=== PATIENT | female | born 1980 | race Two or more races ===

== ENCOUNTER 2017-11-03 16:22 | Inpatient (IN) | payer SELFPAY ==
[~2017-11-03] VITALS: Ht 162.6 cm; Wt 88.0 kg
[2017-11-03 18:12] LABS: Basophils # (auto) 0.1 uL; Basophils % (auto) 0.6 % (0.0-2.0); Eosinophils # (auto) 0.1 uL; Eosinophils % (auto) 1.7 % (0.0-7.0); Hematocrit 28.7 % (36.0-46.0); Hemoglobin 9.7 g/dL (12.2-16.2); Lymphocytes # (auto) 1.5 uL; Lymphocytes % (auto) 17.1 % (10.0-50.0); Mean Corpuscular Hemoglobin 28.3 pg (28.0-32.0); Mean Corpuscular Hgb Conc. 33.7 g/dL (32.0-36.0); Monocytes # (auto) 0.5 uL; Monocytes % (auto) 5.3 % (0.0-12.0); Neutrophils # (auto) 6.4 uL; Neutrophils % (auto) 75.3 % (37.0-80.0); Platelet Count (auto) 187 10^3/uL (140-450); Red Blood Cells 3.41 10^6/uL (4.0-5.20); Red Cell Distribution Width 14.7 % (11.8-14.3); White Blood Cell 8.5 10^3/uL (4.4-10.8)
[2017-11-03 18:36] LABS: Albumin 3.2 g/dL (3.4-5.0); BUN/Creatinine Ratio 8.4; Bilirubin, Total 0.2 mg/dL (0.2-1.0); Calcium 6.5 mg/dL (8.5-10.1); Potassium 3.7 mmol/L (3.5-5.1); Total Protein 6.8 g/dL (6.4-8.2)
[2017-11-03] MEDS ORDERED: EPOETIN ALFA 10,000 UNIT/1 ML VIAL IV ONE (22:15)
[2017-11-03] MEDS ORDERED: SODIUM CHL 0.9% 1000 ML BAG XX ONE (22:15)
[2017-11-03] MEDS ORDERED: MORPHINE SULF INJ 2 MG/ML SYRINGE 1ML IV PRN (22:45)
[2017-11-03] MEDS ORDERED: HYDROcodone-ACET 5/325MG TAB PO PRN (22:45)
[2017-11-03] MEDS ORDERED: LORazepam 2MG/ML-1ML VIAL IV PRN (22:45)
[2017-11-03] MEDS ORDERED: ACETAMINOPHEN 500 MG TAB PO PRN (22:45)
[2017-11-03] MEDS ORDERED: NITROGLYCERIN 0.4 MG SL TAB SL PRN (22:45)
[2017-11-04 02:35] VITALS: BP 126/80
[2017-11-04] MEDS ORDERED: CALCIUM ACETATE 667 MG CAP PO SCH (08:00)
[2017-11-04] MEDS ORDERED: LEVETIRACETAM 500 MG TAB PO SCH (10:00)
[2017-11-04] MEDS ORDERED: amLODIPine BESYLATE 5 MG TAB PO SCH (10:00)
[2017-11-04] MEDS ORDERED: LOSARTAN POTASSIUM 25 MG TAB PO SCH (10:00)
[2017-11-04] MEDS ORDERED: cloNIDine HCL 0.1 MG TAB PO SCH (10:00)
== END 2017-11-04 02:34 | disposition left against medical advice (07) | DRG 682 ==
LOC: ER 16:24 → TELE 16:25 → TELE-WESTW 23:42
PROVIDERS: ADMIT Nurse Practitioner Family; ATTEND Nurse Practitioner Family
PROC: 5A1D70Z Performance of Urinary Filtration, Intermittent, Less than 6 Hours Per Day (ICD-10-PCS; principal; 2017-11-03)
DX: I12.0 Hypertensive chronic kidney disease with stage 5 chronic kidney disease or end stage renal disease (principal); N18.6 End stage renal disease; E44.1 Mild protein-calorie malnutrition; R56.9 Unspecified convulsions; E66.9 Obesity, unspecified; D64.9 Anemia, unspecified; Z53.21 Procedure and treatment not carried out due to patient leaving prior to being seen by health care provider; Z99.2 Dependence on renal dialysis; Z68.31 Body mass index [BMI] 31.0-31.9, adult
CPT/HCPCS: 36415; 71045; 80053; 85025; 90935; 93005; 94761; 96365; 96375; J0885; J1642

== ENCOUNTER 2017-12-23 14:54 | Emergency (ER) | payer SELFPAY ==
[~2017-12-23] VITALS: Ht 162.6 cm; Wt 90.7 kg
[2017-12-23 15:20] VITALS: BP 136/58
== END 2017-12-23 16:46 | disposition left against medical advice (07) ==
LOC: MERGE 15:20 → ER 15:20
DX: T82.838A Hemorrhage due to vascular prosthetic devices, implants and grafts, initial encounter (principal); N18.9 Chronic kidney disease, unspecified; Y92.89 Other specified places as the place of occurrence of the external cause; Z53.29 Procedure and treatment not carried out because of patient's decision for other reasons

== ENCOUNTER → 2019-10-01 | Emergency (ER) | payer MEDICAID, MEDICARE ==
[~2019-10-01] VITALS: Ht 165.1 cm; Wt 86.2 kg
[~2019-10-01] MED LIST: ALBUTEROL SULF 2.5 MG/0.5ML(0.5%) NEB SOLN HHN ONE; ALUM & MAG HYDROX-SIMETH LIQ(MAALOX) 30 ML PO PRN; AMLO5TAB15 PO; BUMETANIDE 2.5mg/10ml (0.25 mg/ml) INJ IV ONE; CALCIUM GLUC 4.65meq/50ml D5AE 50 ML IV ONE; CARVEDILOL 12.5 MG TAB PO ONE; CLO01T PO; DOCUSATE SOD 100 MG CAP PO PRN; FURO80TA3 PO; FUROSEMIDE 100 MG/10ML VIAL IV SCH; FUROSEMIDE 40 MG/4 ML VIAL IV ONE; GABA300C10 PO; HYDR50TA15 PO; HYDROcodone-ACET 5/325MG TAB PO PRN; KEP500T PO; LACT10SO70 PO; LORazepam 0.5 MG TAB PO PRN; MORPHINE SULF INJ 2 MG/ML SYRINGE 1ML IV PRN; NITROGLYCERIN 0.4 MG SL TAB SL PRN; ONDANSETRON HCL 4 MG/2 ML VIAL IV PRN; SODIUM BICARBONATE 8.4 % INJ 50ML VIAL IV ONE; SODIUM CHL 0.9% 1000 ML BAG XX ONE; SODIUM ZIRCONIUM CYCL 10 GM PAK PO ONE; SODIUM ZIRCONIUM CYCL 10 GM PAK PO SCH; cloNIDine HCL 0.1 MG TAB PO ONE; hydrALAZINE HCL 20 MG/ML VL IV ONE
[2019-10-01 12:34] LABS: Basophils # (auto) 0.1 10 ^3/uL (0-0.2); Basophils % (auto) 0.9 % (0.0-2.0); Eosinophils # (auto) 0.1 10 ^3/uL (0-0.8); Hematocrit 31.9 % (36.0-46.0); Hemoglobin 10.8 g/dL (12.2-16.2); Lymphocytes # (auto) 0.8 10 ^3/uL (0.4-5.4); Lymphocytes % (auto) 6.4 % (10.0-50.0); Mean Corpuscular Hemoglobin 30.8 pg (28.0-32.0); Mean Corpuscular Hgb Conc. 33.9 g/dL (32.0-36.0); Mean Corpuscular Volume 90.9 fL (80.0-100.0); Monocytes # (auto) 0.6 10 ^3/uL (0-1.3); Monocytes % (auto) 4.5 % (0.0-12.0); Neutrophils # (auto) 11.6 10 ^3/uL (1.6-8.6); Neutrophils % (auto) 87.2 % (37.0-80.0); Nucleated Red Blood Cells % 0.1 %; Platelet Count (auto) 235 10^3/uL (140-450); Red Blood Cells 3.51 10^6/uL (4.0-5.20); Red Cell Distribution Width 13.9 % (11.8-14.3); White Blood Cell 13.3 10^3/uL (4.4-10.8)
[2019-10-01 12:54] LABS: Albumin 3.6 g/dL (3.4-5.0); Calcium 7.7 mg/dL (8.5-10.1)
[2019-10-01 12:59] LABS: Bilirubin, Total 0.4 mg/dL (0.2-1.0); Total Protein 7.5 g/dL (6.4-8.2)
[2019-10-01 13:01] LABS: BUN/Creatinine Ratio 7.3; Potassium 6.6 mmol/L (3.5-5.1)
[2019-10-01 17:55] VITALS: BP 227/129
== END | disposition left against medical advice (07) ==
LOC: ER 11:41
DX: I12.0 Hypertensive chronic kidney disease with stage 5 chronic kidney disease or end stage renal disease (principal); N18.6 End stage renal disease; E87.5 Hyperkalemia; E87.8 Other disorders of electrolyte and fluid balance, not elsewhere classified; E87.1 Hypo-osmolality and hyponatremia; J18.9 Pneumonia, unspecified organism; Z99.2 Dependence on renal dialysis
CPT/HCPCS: 36415; 71045; 80053; 83735; 83880; 84484; 85025; 87040; 93005; 94640; 96365; 96375; 99285; J0360; J0610; J1642; J1940; J7030; 90935

== ENCOUNTER 2021-05-06 12:25 | Inpatient (IN) | payer MEDICARE ==
[~2021-05-06] VITALS: Ht 162.6 cm; Wt 71.6 kg
[~2021-05-06 12:25] MED LIST changes: -ALBUTEROL SULF 2.5 MG/0.5ML(0.5%) NEB SOLN HHN ONE; -ALUM & MAG HYDROX-SIMETH LIQ(MAALOX) 30 ML PO PRN; +AMLO-489 PO; -AMLO5TAB15 PO; -BUMETANIDE 2.5mg/10ml (0.25 mg/ml) INJ IV ONE; -CALCIUM GLUC 4.65meq/50ml D5AE 50 ML IV ONE; -CARVEDILOL 12.5 MG TAB PO ONE; -DOCUSATE SOD 100 MG CAP PO PRN; -FUROSEMIDE 100 MG/10ML VIAL IV SCH; -FUROSEMIDE 40 MG/4 ML VIAL IV ONE; -HYDROcodone-ACET 5/325MG TAB PO PRN; -LORazepam 0.5 MG TAB PO PRN; -MORPHINE SULF INJ 2 MG/ML SYRINGE 1ML IV PRN; -NITROGLYCERIN 0.4 MG SL TAB SL PRN; -ONDANSETRON HCL 4 MG/2 ML VIAL IV PRN; -SODIUM BICARBONATE 8.4 % INJ 50ML VIAL IV ONE; -SODIUM CHL 0.9% 1000 ML BAG XX ONE; -SODIUM ZIRCONIUM CYCL 10 GM PAK PO ONE; -SODIUM ZIRCONIUM CYCL 10 GM PAK PO SCH; -cloNIDine HCL 0.1 MG TAB PO ONE; -hydrALAZINE HCL 20 MG/ML VL IV ONE
[2021-05-06] MEDS ORDERED: ASPirin 81 mg TAB PO ONE (12:45)
[2021-05-06 13:53] LABS: Basophils # (auto) 0.1 10 ^3/uL (0-0.2); Hemoglobin 8.2 g/dL (12.2-16.2); Lymphocytes # (auto) 0.8 10 ^3/uL (0.4-5.4); Mean Corpuscular Hgb Conc. 33.4 g/dL (32.0-36.0); Monocytes # (auto) 0.7 10 ^3/uL (0-1.3); Neutrophils # (auto) 2.6 10 ^3/uL (1.6-8.6); Neutrophils % (auto) 57.7 % (37.0-80.0); Red Blood Cells 2.76 10^6/uL (4.0-5.20); White Blood Cell 4.5 10^3/uL (4.4-10.8)
[2021-05-06 13:55] LABS: Basophils % (auto) 1.2 % (0.0-2.0); Eosinophils # (auto) 0.4 10 ^3/uL (0-0.8); Eosinophils % (auto) 8.1 % (0.0-7.0); Hematocrit 24.5 % (36.0-46.0); Lymphocytes % (auto) 18.2 % (10.0-50.0); Mean Corpuscular Hemoglobin 29.6 pg (28.0-32.0); Mean Corpuscular Volume 88.5 fL (80.0-100.0); Monocytes % (auto) 14.8 % (0.0-12.0); Nucleated Red Blood Cells % 0.2 %; Red Cell Distribution Width 16.3 % (11.8-14.3)
[2021-05-06 16:33] LABS: Sodium 133 mmol/L (136-145)
[2021-05-06 16:34] LABS: Alanine Aminotransferase 14 U/L (13-56); Alkaline Phosphatase 155 U/L (45-117); Anion Gap 10 (5-15); Aspartate Aminotransferase 22 U/L (15-37); BUN/Creatinine Ratio 9.3; Bilirubin, Total 0.4 mg/dL (0.2-1.0); Calcium 7.9 mg/dL (8.5-10.1); Carbon Dioxide 25 mmol/L (21-32); Chloride 98 mmol/L (98-107); GFR African American 6 mL/min; GFR Non-African American 5 mL/min; Glucose 83 mg/dL (74-106)
[2021-05-06 16:35] LABS: Albumin 3.1 g/dL (3.4-5.0); Total Protein 7.7 g/dL (6.4-8.2)
[2021-05-06 16:40] LABS: Blood Urea Nitrogen 83 mg/dL (7-18); Potassium 6.3 mmol/L (3.5-5.1)
[2021-05-06] MEDS ORDERED: CALCIUM GLUC 1,000mg/50ml-NS 50 ML IV ONE (17:15)
[2021-05-06] MEDS ORDERED: ALBUTEROL SULF 2.5 MG/0.5ML(0.5%) NEB SOLN NEB ONE (17:15)
[2021-05-06] MEDS ORDERED: SODIUM BICARBONATE 8.4% INJ 50ML SYRINGE IV ONE (17:15)
[2021-05-06] MEDS ORDERED: FUROSEMIDE 20 MG/2 ML VIAL IV ONE (17:15)
[2021-05-06] MEDS ORDERED: InsuLIN REG 1unit/0.01ml Soln (100units/ml) IV ONE (17:15)
[2021-05-06] MEDS ORDERED: SODIUM ZIRCONIUM CYCL 10 GM PAK PO ONE (17:15)
[2021-05-06] MEDS ORDERED: DEXTROSE (50%) 50ML SYRG IV ONE (17:15)
[2021-05-07] VITALS (8 sets, daily range): BP systolic 109–146; BP diastolic 58–90
[2021-05-07] MEDS ORDERED: MORPHINE SULFATE INJECTION 2 MG/ML SYRG IV PRN
[2021-05-07] MEDS ORDERED: NITROGLYCERIN 0.4 MG SL TAB SL PRN
[2021-05-07] MEDS: HYDROcodone-ACET 5/325MG TAB PO PRN ×3 (00:22→23:56)
[2021-05-07] MEDS: IPRATROPIUM BROM 0.5 MG/2.5ML INH SOL NEB PRN ×2 (00:53→08:45)
[2021-05-07] MEDS: ALBUTEROL SULF 2.5 MG/0.5ML(0.5%) NEB SOLN NEB PRN ×2 (00:54→08:45)
[2021-05-07] MEDS: SODIUM CHLOR 0.9% PF (SALINE LOCK) 10ML VIAL/SYR IV SCH ×3 (05:15→22:03)
[2021-05-07 06:30] LABS: Basophils # (auto) 0.1 10 ^3/uL (0-0.2); Basophils % (auto) 0.8 % (0.0-2.0); Eosinophils # (auto) 0.3 10 ^3/uL (0-0.8); Lymphocytes # (auto) 0.9 10 ^3/uL (0.4-5.4); Monocytes # (auto) 0.7 10 ^3/uL (0-1.3); Neutrophils # (auto) 4.7 10 ^3/uL (1.6-8.6); Red Cell Distribution Width 15.6 % (11.8-14.3); White Blood Cell 6.6 10^3/uL (4.4-10.8)
[2021-05-07 06:33] LABS: Eosinophils % (auto) 4.6 % (0.0-7.0); Lymphocytes % (auto) 13.4 % (10.0-50.0); Mean Corpuscular Hemoglobin 29.7 pg (28.0-32.0); Mean Corpuscular Hgb Conc. 33.3 g/dL (32.0-36.0); Mean Corpuscular Volume 89.1 fL (80.0-100.0); Neutrophils % (auto) 71.2 % (37.0-80.0); Red Blood Cells 2.69 10^6/uL (4.0-5.20)
[2021-05-07 06:51] LABS: Albumin 3.1 g/dL (3.4-5.0); BUN/Creatinine Ratio 9.1; Calcium 8.2 mg/dL (8.5-10.1)
[2021-05-07 06:54] LABS: Bilirubin, Total 0.4 mg/dL (0.2-1.0)
[2021-05-07 06:55] LABS: Cholesterol 110 mg/dL (< 200); HDL Cholesterol 56 mg/dL (40-59); LDL Cholesterol 44 mg/dL (< 100); Triglycerides 31 mg/dL (< 150)
[2021-05-07] MEDS: SEVELAMER 800 MG TAB PO SCH ×3 (08:00→18:11)
[2021-05-07 08:54] LABS: Potassium 5.8 mmol/L (3.5-5.1)
[2021-05-07] MEDS ORDERED: SODIUM ZIRCONIUM CYCL 10 GM PAK PO ONE ×2 (10:30→17:45)
[2021-05-07] MEDS ORDERED: LACTULOSE 20Gm/30ML SOLN PO ONE (10:30)
[2021-05-07] MEDS: FAMOTIDINE (10MG/ML) 2ML VL IV SCH ×2 (10:53→22:03)
[2021-05-07] MEDS: FUROSEMIDE 40 MG/4 ML VIAL IV SCH (10:53)
[2021-05-07] MEDS: ASPirin 81 mg TAB PO SCH (10:54)
[2021-05-07] MEDS: ZINC SULFATE 220mg CAP or TAB PO SCH (10:54)
[2021-05-07] MEDS: B-COMPLEX W/ C & FOLIC ACID(NEPHROVITE TAB) PO SCH (10:54)
[2021-05-07] MEDS: ASCORBIC ACID 500 MG TAB PO SCH ×2 (10:55→22:03)
[2021-05-07] MEDS: DOCUSATE SOD 100 MG CAP PO PRN (10:55)
[2021-05-07] MEDS: ONDANSETRON HCL 4 MG/2 ML VIAL IV PRN (19:04)
[2021-05-07] MEDS: ATORVASTATIN 20 MG TAB PO SCH (22:03)
[2021-05-08] MEDS: ONDANSETRON HCL 4 MG/2 ML VIAL IV PRN ×2 (02:23→21:29)
[2021-05-08] MEDS: DOCUSATE SOD 100 MG CAP PO PRN (02:36)
[2021-05-08 05:00] VITALS: BP 137/76
[2021-05-08] MEDS: SODIUM CHLOR 0.9% PF (SALINE LOCK) 10ML VIAL/SYR IV SCH ×3 (05:09→21:11)
[2021-05-08 05:50] LABS: Basophils # (auto) 0 10 ^3/uL (0-0.2); Eosinophils # (auto) 0.5 10 ^3/uL (0-0.8); Hemoglobin 8.1 g/dL (12.2-16.2); Lymphocytes # (auto) 0.9 10 ^3/uL (0.4-5.4); Monocytes # (auto) 0.5 10 ^3/uL (0-1.3); Red Cell Distribution Width 15.6 % (11.8-14.3); White Blood Cell 4.8 10^3/uL (4.4-10.8)
[2021-05-08 05:53] LABS: Basophils % (auto) 0.9 % (0.0-2.0); Eosinophils % (auto) 10.3 % (0.0-7.0); Hematocrit 24.3 % (36.0-46.0); Mean Corpuscular Hemoglobin 29.6 pg (28.0-32.0); Mean Corpuscular Hgb Conc. 33.2 g/dL (32.0-36.0); Mean Corpuscular Volume 89.1 fL (80.0-100.0); Monocytes % (auto) 10.3 % (0.0-12.0); Neutrophils # (auto) 2.8 10 ^3/uL (1.6-8.6); Neutrophils % (auto) 59.5 % (37.0-80.0); Red Blood Cells 2.73 10^6/uL (4.0-5.20)
[2021-05-08 06:17] LABS: BUN/Creatinine Ratio 10.1; Calcium 7.5 mg/dL (8.5-10.1)
[2021-05-08 06:20] LABS: Potassium 6.2 mmol/L (3.5-5.1)
[2021-05-08] MEDS: SEVELAMER 800 MG TAB PO SCH ×3 (08:00→17:04)
[2021-05-08 09:21] VITALS: BP 132/83
[2021-05-08] MEDS ORDERED: SODIUM CHL 0.9% 1000 ML BAG XX ONE (09:30)
[2021-05-08] MEDS: B-COMPLEX W/ C & FOLIC ACID(NEPHROVITE TAB) PO SCH (10:22)
[2021-05-08] MEDS: ZINC SULFATE 220mg CAP or TAB PO SCH (10:22)
[2021-05-08] MEDS: FAMOTIDINE (10MG/ML) 2ML VL IV SCH ×2 (10:22→21:11)
[2021-05-08] MEDS: ASPirin 81 mg TAB PO SCH (10:22)
[2021-05-08] MEDS: ASCORBIC ACID 500 MG TAB PO SCH ×2 (10:22→21:19)
[2021-05-08] MEDS: FUROSEMIDE 40 MG/4 ML VIAL IV SCH (10:23)
[2021-05-08] MEDS: HYDROcodone-ACET 5/325MG TAB PO PRN ×2 (10:24→21:29)
[2021-05-08 13:00] VITALS: BP 133/67
[2021-05-08 17:02] VITALS: BP 139/79
[2021-05-08] MEDS ORDERED: EPOETIN ALFA-EPBX 10,000 UNIT/1ML VIAL SC ONE (21:00)
[2021-05-08] MEDS: ATORVASTATIN 20 MG TAB PO SCH (21:19)
[2021-05-08 22:00] VITALS: BP 154/92
[2021-05-08] MEDS: hydrALAZINE HCL 20 MG/ML VL IV PRN (22:00)
[2021-05-09 05:00] VITALS: BP 144/82
[2021-05-09] MEDS: SODIUM CHLOR 0.9% PF (SALINE LOCK) 10ML VIAL/SYR IV SCH ×3 (05:20→21:46)
[2021-05-09] MEDS: HYDROcodone-ACET 5/325MG TAB PO PRN ×3 (05:27→18:02)
[2021-05-09 07:02] LABS: BUN/Creatinine Ratio 9.8
[2021-05-09] MEDS: SEVELAMER 800 MG TAB PO SCH ×3 (08:00→17:44)
[2021-05-09 08:02] LABS: Potassium 5.8 mmol/L (3.5-5.1)
[2021-05-09] MEDS: FAMOTIDINE (10MG/ML) 2ML VL IV SCH ×2 (08:59→21:45)
[2021-05-09] MEDS: B-COMPLEX W/ C & FOLIC ACID(NEPHROVITE TAB) PO SCH (08:59)
[2021-05-09] MEDS: ASPirin 81 mg TAB PO SCH (08:59)
[2021-05-09] MEDS: ASCORBIC ACID 500 MG TAB PO SCH ×2 (08:59→21:46)
[2021-05-09] MEDS: ZINC SULFATE 220mg CAP or TAB PO SCH (08:59)
[2021-05-09] MEDS: DOCUSATE SOD 100 MG CAP PO PRN (09:10)
[2021-05-09] MEDS: FUROSEMIDE 40 MG/4 ML VIAL IV SCH (09:17)
[2021-05-09] MEDS: hydrALAZINE HCL 20 MG/ML VL IV PRN (09:43)
[2021-05-09] MEDS ORDERED: SODIUM ZIRCONIUM CYCL 10 GM PAK PO ONE (11:30)
[2021-05-09] MEDS: ALBUTEROL SULF 2.5 MG/0.5ML(0.5%) NEB SOLN NEB PRN (12:17)
[2021-05-09] MEDS: IPRATROPIUM BROM 0.5 MG/2.5ML INH SOL NEB PRN (12:17)
[2021-05-09 13:20] VITALS: BP 145/88
[2021-05-09] MEDS: ONDANSETRON HCL 4 MG/2 ML VIAL IV PRN ×2 (18:01→22:47)
[2021-05-09] MEDS: ATORVASTATIN 20 MG TAB PO SCH (21:46)
[2021-05-09 22:00] VITALS: BP 127/64
[2021-05-10] MEDS: diphenhdrAMINE HCL 50 MG/1 ML VL IV PRN (00:52)
[2021-05-10] MEDS: HYDROcodone-ACET 5/325MG TAB PO PRN ×3 (03:20→20:04)
[2021-05-10 04:18] LABS: Basophils # (auto) 0 10 ^3/uL (0-0.2); Basophils % (auto) 1.1 % (0.0-2.0); Eosinophils # (auto) 0.5 10 ^3/uL (0-0.8); Monocytes # (auto) 0.5 10 ^3/uL (0-1.3); Neutrophils # (auto) 2.3 10 ^3/uL (1.6-8.6); White Blood Cell 4.2 10^3/uL (4.4-10.8)
[2021-05-10 04:20] LABS: Eosinophils % (auto) 12.1 % (0.0-7.0); Hemoglobin 8.1 g/dL (12.2-16.2); Lymphocytes # (auto) 0.8 10 ^3/uL (0.4-5.4); Lymphocytes % (auto) 20.4 % (10.0-50.0); Mean Corpuscular Hemoglobin 29.7 pg (28.0-32.0); Mean Corpuscular Hgb Conc. 33.8 g/dL (32.0-36.0); Mean Corpuscular Volume 87.8 fL (80.0-100.0); Monocytes % (auto) 11.4 % (0.0-12.0); Nucleated Red Blood Cells % 0.2 %; Red Blood Cells 2.74 10^6/uL (4.0-5.20); Red Cell Distribution Width 15.3 % (11.8-14.3)
[2021-05-10 04:39] LABS: BUN/Creatinine Ratio 10.1; Calcium 8.1 mg/dL (8.5-10.1)
[2021-05-10 05:00] VITALS: BP 138/84
[2021-05-10] MEDS: SODIUM CHLOR 0.9% PF (SALINE LOCK) 10ML VIAL/SYR IV SCH ×3 (05:16→21:08)
[2021-05-10 05:26] LABS: Potassium 6.2 mmol/L (3.5-5.1)
[2021-05-10] MEDS ORDERED: SODIUM ZIRCONIUM CYCL 10 GM PAK PO ONE (05:45)
[2021-05-10] MEDS: SEVELAMER 800 MG TAB PO SCH ×3 (08:14→18:02)
[2021-05-10] MEDS: ASCORBIC ACID 500 MG TAB PO SCH ×2 (10:00→21:08)
[2021-05-10] MEDS: ASPirin 81 mg TAB PO SCH (10:00)
[2021-05-10] MEDS: FAMOTIDINE (10MG/ML) 2ML VL IV SCH ×2 (10:00→21:08)
[2021-05-10] MEDS: ZINC SULFATE 220mg CAP or TAB PO SCH (10:00)
[2021-05-10] MEDS: FUROSEMIDE 40 MG/4 ML VIAL IV SCH (10:00)
[2021-05-10] MEDS: B-COMPLEX W/ C & FOLIC ACID(NEPHROVITE TAB) PO SCH (10:00)
[2021-05-10 10:01] VITALS: BP 146/84
[2021-05-10 13:00] VITALS: BP 140/77
[2021-05-10] MEDS: DOCUSATE SOD 100 MG CAP PO PRN (13:09)
[2021-05-10 13:20] LABS: Hepatitis A Ab IgM Negative
[2021-05-10 14:34] LABS: Hepatitis B Core IgM Negative
[2021-05-10 14:37] LABS: Hepatitis C Antibody Negative (Negative)
[2021-05-10] MEDS ORDERED: LACTULOSE 20Gm/30ML SOLN PO ONE (15:45)
[2021-05-10] MEDS: ACETAMINOPHEN 325 MG TAB PO PRN (16:20)
[2021-05-10] MEDS ORDERED: InsuLIN REG 1unit/0.01ml Soln (100units/ml) IV ONE (16:45)
[2021-05-10] MEDS ORDERED: DEXTROSE (50%) 50ML SYRG IV ONE (16:45)
[2021-05-10 17:00] VITALS: BP 141/67
[2021-05-10] MEDS: SALINE 0.65 % NASAL SPRAY 45ML BOTTLE EACHNOSTRI SCH ×2 (18:00→22:43)
[2021-05-10 20:00] VITALS: BP 143/82
[2021-05-10] MEDS: ATORVASTATIN 20 MG TAB PO SCH (21:08)
[2021-05-10] MEDS: ONDANSETRON HCL 4 MG/2 ML VIAL IV PRN (21:09)
[2021-05-11] MEDS: diphenhdrAMINE HCL 50 MG/1 ML VL IV PRN ×2 (00:37→21:07)
[2021-05-11] MEDS: HYDROcodone-ACET 5/325MG TAB PO PRN ×4 (02:08→21:07)
[2021-05-11 05:00] VITALS: BP 145/79
[2021-05-11] MEDS: SODIUM CHLOR 0.9% PF (SALINE LOCK) 10ML VIAL/SYR IV SCH ×3 (05:03→21:08)
[2021-05-11] MEDS: SALINE 0.65 % NASAL SPRAY 45ML BOTTLE EACHNOSTRI SCH ×4 (05:03→21:06)
[2021-05-11 06:38] LABS: BUN/Creatinine Ratio 8.2
[2021-05-11] MEDS ORDERED: SODIUM ZIRCONIUM CYCL 10 GM PAK PO ONE (06:45)
[2021-05-11] MEDS: SEVELAMER 800 MG TAB PO SCH ×3 (08:00→17:10)
[2021-05-11 08:18] VITALS: BP 152/87
[2021-05-11] MEDS: ASPirin 81 mg TAB PO SCH (09:22)
[2021-05-11] MEDS: B-COMPLEX W/ C & FOLIC ACID(NEPHROVITE TAB) PO SCH (09:22)
[2021-05-11] MEDS: FUROSEMIDE 40 MG/4 ML VIAL IV SCH (09:22)
[2021-05-11] MEDS: FAMOTIDINE (10MG/ML) 2ML VL IV SCH ×2 (09:22→21:07)
[2021-05-11] MEDS: ZINC SULFATE 220mg CAP or TAB PO SCH (09:22)
[2021-05-11] MEDS: ASCORBIC ACID 500 MG TAB PO SCH ×2 (09:22→21:07)
[2021-05-11 11:38] VITALS: BP 161/94
[2021-05-11] MEDS: hydrALAZINE HCL 20 MG/ML VL IV PRN (11:53)
[2021-05-11 13:37] VITALS: BP 154/90
[2021-05-11 16:15] VITALS: BP 155/78
[2021-05-11] MEDS: ONDANSETRON HCL 4 MG/2 ML VIAL IV PRN (16:21)
[2021-05-11] MEDS: ATORVASTATIN 20 MG TAB PO SCH (21:07)
[2021-05-11 21:34] VITALS: BP 140/77
[2021-05-12] MEDS: HYDROcodone-ACET 5/325MG TAB PO PRN ×3 (04:43→21:05)
[2021-05-12 05:00] VITALS: BP 164/97
[2021-05-12] MEDS: SODIUM CHLOR 0.9% PF (SALINE LOCK) 10ML VIAL/SYR IV SCH ×3 (05:58→21:06)
[2021-05-12] MEDS: SALINE 0.65 % NASAL SPRAY 45ML BOTTLE EACHNOSTRI SCH ×4 (05:58→21:06)
[2021-05-12 06:20] LABS: Calcium 8.5 mg/dL (8.5-10.1); Potassium 5.3 mmol/L (3.5-5.1)
[2021-05-12] MEDS: hydrALAZINE HCL 20 MG/ML VL IV PRN ×2 (06:20→13:14)
[2021-05-12 06:22] LABS: BUN/Creatinine Ratio 8.1
[2021-05-12] MEDS ORDERED: ALBUTEROL SULF 2.5 MG/0.5ML(0.5%) NEB SOLN NEB ONE (07:30)
[2021-05-12] MEDS ORDERED: InsuLIN REG 1unit/0.01ml Soln (100units/ml) IV ONE (07:30)
[2021-05-12] MEDS ORDERED: DEXTROSE (50%) 50ML SYRG IV ONE (07:30)
[2021-05-12] MEDS ORDERED: CALCIUM GLUC 1,000mg/50ml-NS 50 ML IV ONE (07:30)
[2021-05-12] MEDS: SODIUM ZIRCONIUM CYCL 10 GM PAK PO SCH ×3 (08:37→21:04)
[2021-05-12] MEDS: B-COMPLEX W/ C & FOLIC ACID(NEPHROVITE TAB) PO SCH (08:38)
[2021-05-12] MEDS: FAMOTIDINE (10MG/ML) 2ML VL IV SCH ×2 (08:38→21:06)
[2021-05-12] MEDS: ZINC SULFATE 220mg CAP or TAB PO SCH (08:38)
[2021-05-12] MEDS: ASCORBIC ACID 500 MG TAB PO SCH ×2 (08:38→21:05)
[2021-05-12] MEDS: FUROSEMIDE 100 MG/10ML VIAL IV SCH (08:38)
[2021-05-12] MEDS: ASPirin 81 mg TAB PO SCH (08:38)
[2021-05-12] MEDS: SEVELAMER 800 MG TAB PO SCH ×3 (08:38→17:07)
[2021-05-12] MEDS: ACETAMINOPHEN 325 MG TAB PO PRN (08:44)
[2021-05-12 09:00] VITALS: BP 154/96
[2021-05-12 13:00] VITALS: BP 156/82
[2021-05-12 16:33] VITALS: BP 144/75
[2021-05-12] MEDS: diphenhdrAMINE HCL 50 MG/1 ML VL IV PRN (21:05)
[2021-05-12] MEDS: ATORVASTATIN 20 MG TAB PO SCH (21:06)
[2021-05-12 22:09] VITALS: BP 160/92
[2021-05-13 05:14] VITALS: BP 165/95
[2021-05-13] MEDS: SODIUM CHLOR 0.9% PF (SALINE LOCK) 10ML VIAL/SYR IV SCH ×3 (05:16→21:44)
[2021-05-13] MEDS: SALINE 0.65 % NASAL SPRAY 45ML BOTTLE EACHNOSTRI SCH ×4 (05:16→21:44)
[2021-05-13] MEDS: SODIUM ZIRCONIUM CYCL 10 GM PAK PO SCH ×3 (05:16→21:33)
[2021-05-13] MEDS: HYDROcodone-ACET 5/325MG TAB PO PRN ×2 (05:17→22:03)
[2021-05-13] MEDS: diphenhdrAMINE HCL 50 MG/1 ML VL IV PRN ×2 (05:17→17:49)
[2021-05-13 06:31] LABS: Potassium 5.2 mmol/L (3.5-5.1)
[2021-05-13 06:43] LABS: Calcium 8.9 mg/dL (8.5-10.1)
[2021-05-13] MEDS ORDERED: SODIUM CHL 0.9% 1000 ML BAG XX ONE (07:00)
[2021-05-13] MEDS: SEVELAMER 800 MG TAB PO SCH ×3 (08:36→16:53)
[2021-05-13] MEDS: FUROSEMIDE 100 MG/10ML VIAL IV SCH (08:36)
[2021-05-13] MEDS: FAMOTIDINE (10MG/ML) 2ML VL IV SCH ×2 (08:37→21:32)
[2021-05-13] MEDS: ZINC SULFATE 220mg CAP or TAB PO SCH (08:37)
[2021-05-13] MEDS: ASPirin 81 mg TAB PO SCH (08:37)
[2021-05-13] MEDS: B-COMPLEX W/ C & FOLIC ACID(NEPHROVITE TAB) PO SCH (08:37)
[2021-05-13] MEDS: ASCORBIC ACID 500 MG TAB PO SCH ×2 (08:37→21:32)
[2021-05-13 08:45] VITALS: BP 146/94
[2021-05-13] MEDS ORDERED: DEXTROSE (50%) 50ML SYRG IV ONE (10:00)
[2021-05-13] MEDS ORDERED: InsuLIN REG 1unit/0.01ml Soln (100units/ml) IV ONE (10:00)
[2021-05-13] MEDS: hydrALAZINE HCL 20 MG/ML VL IV PRN ×2 (12:10→22:18)
[2021-05-13 12:50] VITALS: BP 160/94
[2021-05-13 15:00] LABS: Hemoglobin 7.8 g/dL (12.2-16.2)
[2021-05-13 16:59] VITALS: BP 153/86
[2021-05-13] MEDS ORDERED: EPOETIN ALFA-EPBX 10,000 UNIT/1ML VIAL SC ONE (21:00)
[2021-05-13] MEDS: ATORVASTATIN 20 MG TAB PO SCH (21:33)
[2021-05-13 22:25] VITALS: BP 118/64
[2021-05-14] MEDS: diphenhdrAMINE HCL 50 MG/1 ML VL IV PRN (02:18)
[2021-05-14] MEDS: HYDROcodone-ACET 5/325MG TAB PO PRN (04:38)
[2021-05-14 05:00] VITALS: BP 163/97
[2021-05-14] MEDS: SODIUM CHLOR 0.9% PF (SALINE LOCK) 10ML VIAL/SYR IV SCH (05:40)
[2021-05-14] MEDS: SODIUM ZIRCONIUM CYCL 10 GM PAK PO SCH (05:40)
[2021-05-14] MEDS: SALINE 0.65 % NASAL SPRAY 45ML BOTTLE EACHNOSTRI SCH (05:40)
[2021-05-14] MEDS: hydrALAZINE HCL 20 MG/ML VL IV PRN (05:57)
[2021-05-14] MEDS: ONDANSETRON HCL 4 MG/2 ML VIAL IV PRN (06:02)
[2021-05-14] MEDS: SEVELAMER 800 MG TAB PO SCH (08:21)
[2021-05-14 08:59] VITALS: BP 159/87
[2021-05-14] MEDS: B-COMPLEX W/ C & FOLIC ACID(NEPHROVITE TAB) PO SCH (09:57)
[2021-05-14] MEDS: ASCORBIC ACID 500 MG TAB PO SCH (09:57)
[2021-05-14] MEDS: ZINC SULFATE 220mg CAP or TAB PO SCH (09:57)
[2021-05-14] MEDS: ASPirin 81 mg TAB PO SCH (09:57)
[2021-05-14] MEDS: FUROSEMIDE 100 MG/10ML VIAL IV SCH (09:58)
[2021-05-14] MEDS: FAMOTIDINE (10MG/ML) 2ML VL IV SCH (09:58)
[2021-05-14] MEDS ORDERED: SODI10PA PO (10:27)
[2021-05-14] MEDS ORDERED: HYDR-4833 PO ×2 (10:27→10:28)
[2021-05-14 10:38] VITALS: BP 159/87
== END 2021-05-14 12:00 | disposition home or self-care (01) | DRG 640 ==
LOC: EDUNIT# 12:25 → ER 12:25 → EDBD 12:25 → TELE 23:57 → TELE-WESTW 05-07 01:24
PROVIDERS: ADMIT Nurse Practitioner Family; ATTEND Internal Medicine Geriatric Medicine
PROC: 5A1D70Z Performance of Urinary Filtration, Intermittent, Less than 6 Hours Per Day (ICD-10-PCS; 2021-05-08)
PROC: 5A1D70Z Performance of Urinary Filtration, Intermittent, Less than 6 Hours Per Day (ICD-10-PCS; 2021-05-10)
PROC: 5A1D70Z Performance of Urinary Filtration, Intermittent, Less than 6 Hours Per Day (ICD-10-PCS; principal; 2021-05-13)
DX: E87.70 Fluid overload, unspecified (principal); N18.6 End stage renal disease; E44.1 Mild protein-calorie malnutrition; J81.1 Chronic pulmonary edema; I12.0 Hypertensive chronic kidney disease with stage 5 chronic kidney disease or end stage renal disease; E87.5 Hyperkalemia; E87.1 Hypo-osmolality and hyponatremia; K59.00 Constipation, unspecified; D63.1 Anemia in chronic kidney disease; Z20.822 Contact with and (suspected) exposure to COVID-19; G40.909 Epilepsy, unspecified, not intractable, without status epilepticus; E11.22 Type 2 diabetes mellitus with diabetic chronic kidney disease; J45.909 Unspecified asthma, uncomplicated; Z86.73 Personal history of transient ischemic attack (TIA), and cerebral infarction without residual deficits; Z99.2 Dependence on renal dialysis; Z68.35 Body mass index [BMI] 35.0-35.9, adult; Z91.19 Patient's noncompliance with other medical treatment and regimen; Z95.2 Presence of prosthetic heart valve; Z88.8 Allergy status to other drugs, medicaments and biological substances
CPT/HCPCS: 36415; 71045; 71250; 78582; 80048; 80053; 80061; 80074; 82542; 82962; 84132; 84484; 85014; 85018; 85025; 87426; 90935; 93005; 93306; 94640; 94645; 96365; 96375; G0378; J1815; J2405; J3490; J7060

== ENCOUNTER → 2021-07-14 | Outpatient (CLI) | payer MEDICARE, MEDICAID ==
[~2021-07-14] MED LIST changes: +IOHEXOL 350 MG/ML 100ML IJ ONE; +SODI10PA PO
[2021-07-14 09:25] VITALS: BP 96/46
[2021-07-14 10:20] VITALS: BP 106/49
== END | disposition home or self-care (01) ==
LOC: Rad HDHVI 09:18
PROVIDERS: ATTEND Internal Medicine Cardiovascular Disease
DX: R91.1 Solitary pulmonary nodule (principal); R16.0 Hepatomegaly, not elsewhere classified; I70.0 Atherosclerosis of aorta; R16.1 Splenomegaly, not elsewhere classified; N26.1 Atrophy of kidney (terminal); R59.9 Enlarged lymph nodes, unspecified; J98.11 Atelectasis; I51.7 Cardiomegaly; K57.30 Diverticulosis of large intestine without perforation or abscess without bleeding
CPT/HCPCS: 71260; 74177; G0463; Q9967

== ENCOUNTER → 2021-07-21 | Outpatient (CLI) | payer MEDICARE, MEDICAID ==
[~2021-07-21] MED LIST changes: -IOHEXOL 350 MG/ML 100ML IJ ONE
== END | disposition home or self-care (01) ==
LOC: Rad HDHVI 12:59
PROVIDERS: ATTEND Internal Medicine Cardiovascular Disease
DX: I87.1 Compression of vein (principal)
CPT/HCPCS: 93926

== ENCOUNTER → 2021-08-13 | Outpatient (CLI) | payer MEDICARE, MEDICAID ==
[2021-08-13 14:34] LABS: Basophils # (auto) 0.1 10 ^3/uL (0-0.2); Basophils % (auto) 1.2 % (0.0-2.0); Eosinophils # (auto) 0.3 10 ^3/uL (0-0.8); Lymphocytes # (auto) 1.1 10 ^3/uL (0.4-5.4); Mean Corpuscular Hemoglobin 31.9 pg (28.0-32.0); Monocytes # (auto) 0.6 10 ^3/uL (0-1.3); Neutrophils # (auto) 4.4 10 ^3/uL (1.6-8.6)
[2021-08-13 14:36] LABS: Eosinophils % (auto) 4.2 % (0.0-7.0); Hematocrit 23.7 % (36.0-46.0); Lymphocytes % (auto) 16.8 % (10.0-50.0); Mean Corpuscular Volume 93.8 fL (80.0-100.0); Neutrophils % (auto) 68.8 % (37.0-80.0); Nucleated Red Blood Cells % 0.1 %; Red Blood Cells 2.52 10^6/uL (4.0-5.20); Red Cell Distribution Width 14.7 % (11.8-14.3); White Blood Cell 6.5 10^3/uL (4.4-10.8)
[2021-08-13 15:38] LABS: BUN/Creatinine Ratio 7.8; Calcium 8.5 mg/dL (8.5-10.1); Potassium 4.6 mmol/L (3.5-5.1)
== END | disposition home or self-care (01) ==
LOC: CHF HDHVI 12:08
PROVIDERS: ATTEND Internal Medicine Cardiovascular Disease
DX: I10 Essential (primary) hypertension (principal); D64.9 Anemia, unspecified
CPT/HCPCS: 36415; 80048; 85025

== ENCOUNTER 2021-10-12 12:54 | Inpatient (IN) | payer MEDICARE, MEDICAID ==
[~2021-10-12] VITALS: Ht 157.5 cm; Wt 106.1 kg
[2021-10-12 16:57] LABS: Basophils # (auto) 0.1 10 ^3/uL (0-0.2); Basophils % (auto) 0.8 % (0.0-2.0); Eosinophils # (auto) 0.1 10 ^3/uL (0-0.8); Eosinophils % (auto) 1.5 % (0.0-7.0); Hemoglobin 9.4 g/dL (12.2-16.2); Lymphocytes # (auto) 0.8 10 ^3/uL (0.4-5.4); Lymphocytes % (auto) 12.4 % (10.0-50.0); Mean Corpuscular Hgb Conc. 33.5 g/dL (32.0-36.0); Mean Corpuscular Volume 89.4 fL (80.0-100.0); Monocytes # (auto) 0.4 10 ^3/uL (0-1.3); Monocytes % (auto) 6.9 % (0.0-12.0); Neutrophils # (auto) 4.8 10 ^3/uL (1.6-8.6); Neutrophils % (auto) 78.4 % (37.0-80.0); Red Blood Cells 3.14 10^6/uL (4.0-5.20); Red Cell Distribution Width 14.9 % (11.8-14.3); White Blood Cell 6.1 10^3/uL (4.4-10.8)
[2021-10-12 17:01] LABS: Albumin 3.8 g/dL (3.4-5.0); BUN/Creatinine Ratio 7.6; Calcium 8.4 mg/dL (8.5-10.1); Potassium 4.3 mmol/L (3.5-5.1)
[2021-10-12 17:03] LABS: Total Protein 7.8 g/dL (6.4-8.2)
[2021-10-12] MEDS ORDERED: NITROGLYCERIN 0.4 MG SL TAB SL PRN (22:45)
[2021-10-12] MEDS ORDERED: cloNIDine HCL 0.1 MG TAB PO PRN (22:45)
[2021-10-12] MEDS ORDERED: MORPHINE SULFATE INJ 2 MG/ml SYRG IV PRN (22:45)
[2021-10-12] MEDS ORDERED: PIPERACILLIN-TAZO 4.5GM 100 ML IV SCH (23:00)
[2021-10-12] MEDS ORDERED: PIPERACILLIN-TAZOB 0.75 GM in D5W 5% 50 ML IV SCH (23:00)
[2021-10-12] MEDS ORDERED: VANCOMYCIN 1GM/250ML 250 ML IV ONE (23:00)
[2021-10-12] MEDS ORDERED: diphenhdrAMINE HCL 50 MG/1 ML VL IV ONE (23:15)
[2021-10-13] VITALS (7 sets, daily range): BP systolic 149–195; BP diastolic 65–121
[2021-10-13] MEDS: PIPERACILLIN-TAZOB 2.25GM 50 ML IV SCH ×3 (01:44→23:10)
[2021-10-13] MEDS ORDERED: HYDR-4902 PO ×2 (05:47→05:50)
[2021-10-13] MEDS ORDERED: APIX5TAB PO (05:50)
[2021-10-13] MEDS ORDERED: LEVE500T32 PO (05:50)
[2021-10-13] MEDS ORDERED: HYDR-3682 PO (05:50)
[2021-10-13] MEDS ORDERED: VANCOMYCIN PER PHARMACY 0 MG IV SCH (08:30)
[2021-10-13] MEDS ORDERED: VANCOMYCIN 1GM/250ML 250 ML IV ONE (09:00)
[2021-10-13] MEDS ORDERED: VANCOMYCIN 500 MG in D5W 5% 100 ML IV ONE ×2 (13:30→17:30)
[2021-10-13] MEDS ORDERED: GABAPENTIN 300 MG CAP PO SCH (13:45)
[2021-10-13] MEDS ORDERED: phytonadione 2.5 MG in SODIUM CHL 0.9% 50 ML IV ONE (14:30)
[2021-10-13] MEDS: hydrOXYzine HCL 10 MG TAB PO PRN ×2 (16:17→22:21)
[2021-10-13] MEDS ORDERED: APIXABAN 5 MG TAB PO SCH (22:00)
[2021-10-13] MEDS: cloNIDine HCL 0.1 MG TAB PO SCH (22:20)
[2021-10-13] MEDS: levETIRAcetam 500 MG TAB PO SCH (22:20)
[2021-10-13] MEDS: HYDROcodone-ACET 10/325MG TAB PO PRN (23:27)
[2021-10-14 05:00] VITALS: BP 146/89
[2021-10-14] MEDS ORDERED: SODIUM CHL 0.9% 1000 ML BAG XX ONE (08:30)
[2021-10-14] MEDS: PIPERACILLIN-TAZOB 2.25GM 50 ML IV SCH ×3 (08:52→21:37)
[2021-10-14] MEDS: FUROSEMIDE PO SCH (08:53)
[2021-10-14] MEDS: cloNIDine HCL 0.1 MG TAB PO SCH ×2 (08:54→21:42)
[2021-10-14] MEDS: levETIRAcetam 500 MG TAB PO SCH ×2 (08:54→21:39)
[2021-10-14] MEDS: amLODIPine BESYLATE 5 MG TAB PO SCH (08:55)
[2021-10-14 09:00] VITALS: BP 156/96
[2021-10-14 09:23] LABS: Albumin 3.8 g/dL (3.4-5.0); Calcium 8.1 mg/dL (8.5-10.1)
[2021-10-14 10:00] LABS: Hematocrit 26.9 % (36.0-46.0); Hemoglobin 9.1 g/dL (12.2-16.2)
[2021-10-14 10:24] LABS: % Iron Saturation 13.7 % (15-50)
[2021-10-14] MEDS: HYDROcodone-ACET 10/325MG TAB PO PRN (12:32)
[2021-10-14] MEDS: CALCIUM ACETATE 667 MG CAP PO SCH ×2 (12:32→17:26)
[2021-10-14 13:00] VITALS: BP 157/92
[2021-10-14 13:06] LABS: Hepatitis A Ab IgM Negative; Hepatitis B Core IgM Negative; Hepatitis C Antibody Negative (Negative)
[2021-10-14] MEDS ORDERED: VANCOMYCIN 500 MG in D5W 5% 100 ML IV ONE (16:00)
[2021-10-14] MEDS: hydrOXYzine HCL 10 MG TAB PO PRN (16:14)
[2021-10-14 17:00] VITALS: BP 130/71
[2021-10-14] MEDS ORDERED: EPOETIN ALFA-EPBX 10,000 UNIT/1ML VIAL SC ONE (21:00)
[2021-10-14] MEDS: hydrOXYzine HCL 10 MG TAB PO SCH (21:42)
[2021-10-14 22:00] VITALS: BP 149/83
[2021-10-15 05:00] VITALS: BP 140/76
[2021-10-15] MEDS: PIPERACILLIN-TAZOB 2.25GM 50 ML IV SCH ×3 (05:41→21:50)
[2021-10-15] MEDS: hydrOXYzine HCL 10 MG TAB PO SCH ×3 (05:43→21:48)
[2021-10-15 05:45] LABS: Potassium 4.4 mmol/L (3.5-5.1)
[2021-10-15 05:55] LABS: BUN/Creatinine Ratio 5.9; Calcium 8.2 mg/dL (8.5-10.1)
[2021-10-15] MEDS: CALCIUM ACETATE 667 MG CAP PO SCH ×3 (08:00→18:45)
[2021-10-15] MEDS: HYDROcodone-ACET 10/325MG TAB PO PRN ×2 (08:00→21:47)
[2021-10-15] MEDS: FUROSEMIDE PO SCH (08:39)
[2021-10-15] MEDS: levETIRAcetam 500 MG TAB PO SCH ×2 (08:40→21:49)
[2021-10-15] MEDS: amLODIPine BESYLATE 5 MG TAB PO SCH (08:41)
[2021-10-15] MEDS: cloNIDine HCL 0.1 MG TAB PO SCH ×2 (08:41→21:46)
[2021-10-15 13:00] VITALS: BP 115/65
[2021-10-15 16:51] VITALS: BP 124/75
[2021-10-15 22:00] VITALS: BP 103/68
[2021-10-16 04:33] VITALS: BP 109/58
[2021-10-16] MEDS: PIPERACILLIN-TAZOB 2.25GM 50 ML IV SCH ×3 (05:46→22:37)
[2021-10-16] MEDS: hydrOXYzine HCL 10 MG TAB PO SCH ×3 (05:47→22:37)
[2021-10-16] MEDS: HYDROcodone-ACET 10/325MG TAB PO PRN ×3 (05:48→23:05)
[2021-10-16 05:49] LABS: Hematocrit 25.8 % (36.0-46.0); Hemoglobin 8.6 g/dL (12.2-16.2)
[2021-10-16] MEDS ORDERED: SODIUM CHL 0.9% 1000 ML BAG XX ONE (07:00)
[2021-10-16] MEDS: CALCIUM ACETATE 667 MG CAP PO SCH ×3 (08:13→17:51)
[2021-10-16 09:30] VITALS: BP 100/55
[2021-10-16] MEDS: levETIRAcetam 500 MG TAB PO SCH ×2 (09:52→22:37)
[2021-10-16] MEDS: FUROSEMIDE PO SCH (10:00)
[2021-10-16] MEDS: amLODIPine BESYLATE 5 MG TAB PO SCH (10:00)
[2021-10-16] MEDS: cloNIDine HCL 0.1 MG TAB PO SCH ×2 (10:00→22:00)
[2021-10-16 12:25] VITALS: BP 103/58
[2021-10-16 12:30] VITALS: BP 138/70
[2021-10-16 17:00] VITALS: BP 120/59
[2021-10-16] MEDS: CHOLESTYRAMINE 4 GM POWDER PO SCH (17:50)
[2021-10-16] MEDS ORDERED: EPOETIN ALFA-EPBX 10,000 UNIT/1ML VIAL SC ONE (21:00)
[2021-10-16 22:41] VITALS: BP 106/60
[2021-10-17 05:00] VITALS: BP 124/68
[2021-10-17] MEDS: hydrOXYzine HCL 10 MG TAB PO SCH ×3 (06:00→22:00)
[2021-10-17] MEDS: PIPERACILLIN-TAZOB 2.25GM 50 ML IV SCH ×3 (06:10→21:33)
[2021-10-17] MEDS: HYDROcodone-ACET 10/325MG TAB PO PRN ×2 (06:10→16:25)
[2021-10-17] MEDS: hydrOXYzine 25 MG TAB or CAP PO PRN (06:11)
[2021-10-17 07:07] LABS: Basophils # (auto) 0 10 ^3/uL (0-0.2); Basophils % (auto) 1.2 % (0.0-2.0); Eosinophils # (auto) 0.2 10 ^3/uL (0-0.8); Eosinophils % (auto) 4.1 % (0.0-7.0); Hematocrit 26.9 % (36.0-46.0); Hemoglobin 9.1 g/dL (12.2-16.2); Lymphocytes % (auto) 26.1 % (10.0-50.0); Mean Corpuscular Hemoglobin 30.1 pg (28.0-32.0); Mean Corpuscular Hgb Conc. 33.7 g/dL (32.0-36.0); Mean Corpuscular Volume 89.4 fL (80.0-100.0); Monocytes # (auto) 0.5 10 ^3/uL (0-1.3); Monocytes % (auto) 12.2 % (0.0-12.0); Neutrophils # (auto) 2.2 10 ^3/uL (1.6-8.6); Neutrophils % (auto) 56.4 % (37.0-80.0); Red Blood Cells 3.01 10^6/uL (4.0-5.20); Red Cell Distribution Width 14.7 % (11.8-14.3); White Blood Cell 3.9 10^3/uL (4.4-10.8)
[2021-10-17] MEDS: CALCIUM ACETATE 667 MG CAP PO SCH ×3 (08:00→18:00)
[2021-10-17 08:53] VITALS: BP 119/50
[2021-10-17] MEDS: levETIRAcetam 500 MG TAB PO SCH ×2 (10:00→21:33)
[2021-10-17] MEDS: FUROSEMIDE PO SCH (10:00)
[2021-10-17] MEDS: CHOLESTYRAMINE 4 GM POWDER PO SCH (11:00)
[2021-10-17] MEDS ORDERED: VANCOMYCIN 750mg/250ml 250 ML IV ONE (12:00)
[2021-10-17] MEDS: cloNIDine HCL 0.1 MG TAB PO SCH ×2 (12:30→22:00)
[2021-10-17] MEDS: amLODIPine BESYLATE 5 MG TAB PO SCH (12:30)
[2021-10-17 13:00] VITALS: BP 131/71
[2021-10-17 17:03] VITALS: BP 110/64
[2021-10-17] MEDS ORDERED: EPOETIN ALFA-EPBX 10,000 UNIT/1ML VIAL SC ONE (21:00)
[2021-10-17 22:00] VITALS: BP 76/36
[2021-10-18] VITALS (7 sets, daily range): BP systolic 115–131; BP diastolic 30–57
[2021-10-18] MEDS: HYDROcodone-ACET 10/325MG TAB PO PRN ×2 (01:15→17:38)
[2021-10-18] MEDS: hydrOXYzine 25 MG TAB or CAP PO PRN (02:27)
[2021-10-18] MEDS: PIPERACILLIN-TAZOB 2.25GM 50 ML IV SCH ×2 (05:51→14:18)
[2021-10-18] MEDS: hydrOXYzine HCL 10 MG TAB PO SCH ×2 (05:54→14:18)
[2021-10-18 06:36] LABS: Albumin 3.4 g/dL (3.4-5.0); Calcium 8.2 mg/dL (8.5-10.1)
[2021-10-18] MEDS: CALCIUM ACETATE 667 MG CAP PO SCH ×3 (08:33→17:37)
[2021-10-18] MEDS: cloNIDine HCL 0.1 MG TAB PO SCH (09:32)
[2021-10-18] MEDS: amLODIPine BESYLATE 5 MG TAB PO SCH (09:33)
[2021-10-18] MEDS: levETIRAcetam 500 MG TAB PO SCH ×2 (09:33→21:30)
[2021-10-18] MEDS: FUROSEMIDE PO SCH (10:00)
[2021-10-18] MEDS: CHOLESTYRAMINE 4 GM POWDER PO SCH (12:00)
[2021-10-19] MEDS ORDERED: SODIUM CHL 0.9% 1000 ML BAG XX ONE (07:00)
[2021-10-19] MEDS ORDERED: EPOETIN ALFA-EPBX 10,000 UNIT/1ML VIAL SC ONE (21:00)
== END 2021-10-18 21:30 | disposition home health service (06) | DRG 304 ==
LOC: ER 12:54 → EDBD 12:54 → TELE 22:45 → TELE-WESTW 10-13 04:23
PROVIDERS: ADMIT Internal Medicine Cardiovascular Disease; ATTEND Internal Medicine Cardiovascular Disease
DX: I16.0 Hypertensive urgency (principal); N18.6 End stage renal disease; L03.90 Cellulitis, unspecified; I13.2 Hypertensive heart and chronic kidney disease with heart failure and with stage 5 chronic kidney disease, or end stage renal disease; J45.909 Unspecified asthma, uncomplicated; D63.1 Anemia in chronic kidney disease; I25.10 Atherosclerotic heart disease of native coronary artery without angina pectoris; G40.909 Epilepsy, unspecified, not intractable, without status epilepticus; Z99.2 Dependence on renal dialysis; Z80.3 Family history of malignant neoplasm of breast; Z86.73 Personal history of transient ischemic attack (TIA), and cerebral infarction without residual deficits; Z95.1 Presence of aortocoronary bypass graft
CPT/HCPCS: 36415; 71045; 76642; 80048; 80053; 80074; 80202; 82040; 82310; 82565; 82728; 82962; 83540; 83550; 83880; 84484; 85014; 85018; 85025; 87081; 90935; 93005; 93971; 96365; 96367; 96375; G0378; J2543; J3430; J7060

== ENCOUNTER 2021-10-29 03:28 | Emergency (ER) | payer MEDICARE, MEDICAID ==
[~2021-10-29] VITALS: Ht 167.6 cm; Wt 81.6 kg
[~2021-10-29 03:28] MED LIST changes: +APIX5TAB PO; +HYDR-3682 PO; +HYDR-4902 PO; -HYDR50TA15 PO; -KEP500T PO; +LEVE500T32 PO; -SODI10PA PO
[2021-10-29] MEDS ORDERED: ONDANSETRON HCL 4 MG/2 ML VIAL IV ONE (04:15)
[2021-10-29] MEDS ORDERED: ALUM & MAG HYDROX-SIMETH LIQ(MAALOX) 30 ML PO ONE (04:15)
[2021-10-29 04:31] LABS: Basophils # (auto) 0.1 10 ^3/uL (0-0.2); Basophils % (auto) 1.2 % (0.0-2.0); Eosinophils # (auto) 0.2 10 ^3/uL (0-0.8); Eosinophils % (auto) 3.4 % (0.0-7.0); Lymphocytes # (auto) 0.9 10 ^3/uL (0.4-5.4); Lymphocytes % (auto) 19.5 % (10.0-50.0); Mean Corpuscular Hemoglobin 30.5 pg (28.0-32.0); Mean Corpuscular Hgb Conc. 34.7 g/dL (32.0-36.0); Monocytes # (auto) 0.5 10 ^3/uL (0-1.3); Monocytes % (auto) 11.9 % (0.0-12.0); Nucleated Red Blood Cells % 0.3 %; Red Blood Cells 2.61 10^6/uL (4.0-5.20); Red Cell Distribution Width 15.2 % (11.8-14.3); White Blood Cell 4.6 10^3/uL (4.4-10.8)
[2021-10-29 04:44] LABS: Albumin 3.6 g/dL (3.4-5.0); Calcium 7.3 mg/dL (8.5-10.1); Potassium 3.9 mmol/L (3.5-5.1)
[2021-10-29 04:48] LABS: BUN/Creatinine Ratio 7.1; Bilirubin, Total 0.4 mg/dL (0.2-1.0); Total Protein 7.7 g/dL (6.4-8.2)
[2021-10-29] MEDS ORDERED: LORazepam 2MG/ML-1ML VIAL IV ONE (06:30)
[2021-10-29 07:09] VITALS: BP 171/85
== END 2021-10-29 07:46 | disposition home or self-care (01) ==
LOC: EDUNIT# 03:28 → EDBD 03:28 → ER 03:28
DX: R07.89 Other chest pain (principal); I12.0 Hypertensive chronic kidney disease with stage 5 chronic kidney disease or end stage renal disease; N18.6 End stage renal disease; F41.9 Anxiety disorder, unspecified; J45.909 Unspecified asthma, uncomplicated; Z99.2 Dependence on renal dialysis; Z86.73 Personal history of transient ischemic attack (TIA), and cerebral infarction without residual deficits
CPT/HCPCS: 36415; 71045; 80053; 83880; 84484; 85025; 93005; 96374; 96375; 99285; J2060; J2405

== ENCOUNTER → 2021-12-24 | Outpatient (CLI) | payer MEDICARE, MEDICAID ==
[~2021-12-24] MED LIST changes: +ASPI325T4 PO; +CALC667C PO; +ENAL2.5T7 PO; +HYDR-4298 PO; +LORA0.5T20 PO; +METO-281 PO; +SEVE800T8 PO
[2021-12-24 11:36] VITALS: BP 156/75
[2021-12-24 12:00] VITALS: BP 156/82
[2021-12-24 17:03] LABS: Basophils # (auto) 0 10 ^3/uL (0-0.2); Basophils % (auto) 0.8 % (0.0-2.0); Eosinophils # (auto) 0.1 10 ^3/uL (0-0.8); Eosinophils % (auto) 2.9 % (0.0-7.0); Hematocrit 28.5 % (36.0-46.0); Hemoglobin 8.6 g/dL (12.2-16.2); Lymphocytes % (auto) 20.3 % (10.0-50.0); Mean Corpuscular Hgb Conc. 30.3 g/dL (32.0-36.0); Mean Corpuscular Volume 92.4 fL (80.0-100.0); Monocytes # (auto) 0.5 10 ^3/uL (0-1.3); Monocytes % (auto) 10.4 % (0.0-12.0); Neutrophils # (auto) 3.3 10 ^3/uL (1.6-8.6); Neutrophils % (auto) 65.6 % (37.0-80.0); Nucleated Red Blood Cells % 0.1 %; Red Blood Cells 3.09 10^6/uL (4.0-5.20); Red Cell Distribution Width 17.9 % (11.8-14.3); White Blood Cell 5.1 10^3/uL (4.4-10.8)
[2021-12-24 17:12] LABS: BUN/Creatinine Ratio 7.5; Calcium 7.4 mg/dL (8.5-10.1); Potassium 3.6 mmol/L (3.5-5.1)
[2021-12-24 17:16] LABS: INR 1.08 (0.9-1.15); Partial Thromboplastin Time 27.5 sec (24.6-33.4)
== END | disposition home or self-care (01) ==
LOC: Rad HDHVI 11:16
PROVIDERS: ATTEND Internal Medicine Cardiovascular Disease
DX: Z01.818 Encounter for other preprocedural examination (principal); J84.89 Other specified interstitial pulmonary diseases; I70.0 Atherosclerosis of aorta; R07.89 Other chest pain; R06.02 Shortness of breath; I27.21 Secondary pulmonary arterial hypertension; M47.814 Spondylosis without myelopathy or radiculopathy, thoracic region; Z95.2 Presence of prosthetic heart valve
CPT/HCPCS: 36415; 71046; 80048; 84702; 85025; 85610; 85730; 93005; G0463

== ENCOUNTER 2021-12-28 11:59 | Day surgery (SDC) | payer MEDICARE, MEDICAID ==
[2021-12-28] VITALS (10 sets, daily range): BP systolic 115–130; BP diastolic 64–71
[~2021-12-28] VITALS: Ht 162.6 cm; Wt 89.8 kg
[~2021-12-28 11:59] MED LIST changes: -AMLO-489 PO; -CLO01T PO; -FURO80TA3 PO; -GABA300C10 PO; -HYDR-3682 PO; -LACT10SO70 PO
[2021-12-28] MEDS ORDERED: HYDROmorphone HCL 2 MG/ML VL/or syr ONE (13:40)
[2021-12-28] MEDS ORDERED: HYDROmorphone HCL 2 MG/ML VL/or syr IV ONE (13:45)
[2021-12-28] MEDS ORDERED: MIDAZOLAM HCL 2MG/2ML 2ml VIAL (1mg/ml) ONE (14:26)
[2021-12-28] MEDS ORDERED: fentaNYL CITRATE 100 MCG/2 ML VL ONE (14:26)
[2021-12-28] MEDS ORDERED: SODIUM CHL 0.9% 0 ML ONE (14:26)
[2021-12-28] MEDS ORDERED: ANGIOMAX 250 MG VIAL IV ONE (14:26)
[2021-12-28] MEDS ORDERED: LIDOCAINE 2%HCL (LOCAL ANESTH.) INJ 20ML MDV ONE (14:28)
[2021-12-28] MEDS ORDERED: ACETAMINOPHEN 325 MG TAB PO ONE ×2 (17:24→17:30)
== END 2021-12-28 18:03 | disposition home or self-care (01) ==
LOC: CATH 11:59
PROVIDERS: ATTEND Internal Medicine Cardiovascular Disease
DX: R94.39 Abnormal result of other cardiovascular function study (principal); I27.20 Pulmonary hypertension, unspecified; I25.10 Atherosclerotic heart disease of native coronary artery without angina pectoris; J44.9 Chronic obstructive pulmonary disease, unspecified; I48.91 Unspecified atrial fibrillation; I13.0 Hypertensive heart and chronic kidney disease with heart failure and stage 1 through stage 4 chronic kidney disease, or unspecified chronic kidney disease; N18.9 Chronic kidney disease, unspecified; I50.9 Heart failure, unspecified; Z80.3 Family history of malignant neoplasm of breast; Z79.02 Long term (current) use of antithrombotics/antiplatelets; Z20.822 Contact with and (suspected) exposure to COVID-19
CPT/HCPCS: 36221; 75625; 93456; C1751; C1760; C1894; J1170; J1644; J2250; J3010; J7030; U0003; 99152

== ENCOUNTER → 2022-09-13 | Outpatient (CLI) | payer MEDICARE, MEDICAID ==
[~2022-09-13] VITALS: Ht 162.6 cm; Wt 92.5 kg
[~2022-09-13] MED LIST changes: +ADENOSINE 78 MG in GIVE UN-DILUTED 0 ML IV ONE; +ADENOSINE 90 MG/30 ML INJ IV ONE; +ENAL1TAB42 PO; -ENAL2.5T7 PO; -LEVE500T32 PO; +LEVE500T40 PO; +LORA-1121 PO; -LORA0.5T20 PO; +LORazepam 2MG/ML-1ML VIAL ONE
[2022-09-13] MEDS: LORazepam 2MG/ML-1ML VIAL IV PRN ×2 (15:03→15:10)
== END | disposition home or self-care (01) ==
LOC: Rad HDHVI 13:17
PROVIDERS: ATTEND Internal Medicine Cardiovascular Disease
DX: Z01.810 Encounter for preprocedural cardiovascular examination (principal); I12.0 Hypertensive chronic kidney disease with stage 5 chronic kidney disease or end stage renal disease; N18.6 End stage renal disease; I35.8 Other nonrheumatic aortic valve disorders; R07.9 Chest pain, unspecified; R06.02 Shortness of breath
CPT/HCPCS: 78452; 93005; 96374; 96375; A9500; J0153; J2060